=== PATIENT | male | born 1990 | race Caucasian/White ===

== ENCOUNTER 2022-01-12 12:47 | Emergency (ER) | payer BC ==
[2022-01-12 13:26] VITALS: BP 144/69; PULSE 97
== END 2022-01-12 18:56 | disposition left against medical advice (07) ==
LOC: MW.ED 12:47
DX: S61.412A Laceration without foreign body of left hand, initial encounter (principal); Z53.21 Procedure and treatment not carried out due to patient leaving prior to being seen by health care provider; Y93.G1 Activity, food preparation and clean up